=== PATIENT | male | born 1985 | race Caucasian/White ===

== ENCOUNTER 2019-04-30 17:01 | Emergency (ER) | payer OTHER ==
[~2019-04-30] VITALS: Ht 170.1 cm; Wt 90.7 kg
--- NOTE | ~2019-04-30 | EKG ---
[place], [place] ELECTROCARDIOGRAM REPORT NAME: BEATRICE TAYLOR UNIT #: [id number] ROOM: DOCTOR: EPIPHANY DRAFT REPORT BIRTHDATE: [birth year] [facility] Test Date: 2019-04-30 Test Time: 17:57:36 Pat Name: BEATRICE TAYLOR Department: Room: Gender: House Fellow: : 1985 Requested By: BLAYNE MAZARIEGOS DNP Order Number: [id number] Reading MD: Alexander Kim MD Measurements Intervals [place] Rate: 82 P: 25 [place]: 170 QRS: 10 QRSD: 97 T: 3 QT: 372 QTc: 435 Interpretive Statements Sinus rhythm Left ventricular hypertrophy Electronically Signed On 05-03-2019 7:43:59 PDT by Alexander Kim MD CM:EKGRPT:ELECTROCARDIOGRAM REPORT [id number] BLAYNE MAZARIEGOS DNP EPIPHANY DRAFT REPORT BLAYNE MAZARIEGOS DNP
[~2019-04-30 17:01] MED LIST: MOTRIN800 MG PO
[2019-04-30 18:11] LABS: BASO # 0.1 10*3/uL (0.0-0.1); BASO % 0.6 % (0.0-1.0); EOS # 0.3 10*3/uL (0.0-0.4); EOS % 3.9 % (1.0-4.0); HEMATOCRIT 44.9 % (42.0-52.0); HEMOGLOBIN 15.1 g/dl (14.0-18.0); LYMPH # 2.3 10*3/uL (1.3-4.4); LYMPH % 28.4 % (27.0-41.0); MEAN CELL VOLUME 89.8 fl (80.0-94.0); MEAN CORPUSCULAR HGB 30.2 pg (27.0-31.0); MEAN CORPUSCULAR HGB CONC 33.6 g/dl (33.0-37.0); MEAN PLATELET VOLUME 9.2 fl (9.6-12.3); MONO # 0.6 10*3/uL (0.1-1.0); MONO % 7.2 % (3.0-9.0); NEUT # 4.9 10*3/uL (2.3-7.9); NEUT % 59.5 % (47.0-73.0); PLATELET COUNT AUTOMATED 261 10*3/uL (130-400); RED CELL DISTRI WIDTH 12.5 % (0-14.5); WHITE BLOOD COUNT 8.2 10*3/uL (4.8-10.8)
[2019-04-30 18:22] LABS: ACT PARTIAL THROMBO TIME 26.5 SECONDS (20.0-32.1); INTERNATIONAL NORM RATIO 0.9 (2.0-3.5)
[2019-04-30 18:28] LABS: ALBUMIN 4.1 gm/dl (3.1-4.5); ALKALINE PHOSPHATASE 69 U/L (45-117); BUN 12 mg/dl (7-24); CHLORIDE 110 mmol/L (98-107); CREATININE 0.97 mg/dL (0.70-1.30); LIPASE 102 U/L (73-393); POTASSIUM 3.6 mmol/L (3.5-5.1); SGOT/AST 22 IU/L (3-35); SGPT/ALT 39 U/L (12-78); SODIUM 141 mmol/L (136-145); TOTAL PROTEIN 7.9 gm/dL (6.4-8.2)
[2019-04-30 18:45] LABS: TROPONIN I < 0.015 ng/ml (<0.045)
[2019-04-30] MEDS ORDERED: NORVASC5 MG PO (19:21)
[2019-04-30 20:42] LABS: BILIRUBIN NEGATIVE (NEGATIVE); BLOOD 3+ (NEGATIVE); CLARITY CLEAR (CLEAR); COLOR YELLOW (YELLOW); GLUCOSE NEGATIVE (NEGATIVE); KETONE NEGATIVE (NEGATIVE); LEUKO ESTERASE NEGATIVE (NEGATIVE); NITRITE NEGATIVE (NEGATIVE); SPECIFIC GRAVITY >= 1.030 (1.005-1.030); UROBILINOGEN 0.2 E.U./dl (0.2-1.0)
[2019-04-30 20:53] LABS: RBC 16-20 rbc/hpf (0-2)
== END 2019-04-30 19:29 | disposition home or self-care (01) ==
LOC: ED 17:01
PROVIDERS: Nurse Practitioner Family
DX: I10 Essential (primary) hypertension (principal); F17.200 Nicotine dependence, unspecified, uncomplicated

== ENCOUNTER 2020-06-17 16:45 | Emergency (ER) | payer OTHER ==
[~2020-06-17] VITALS: Ht 170.1 cm; Wt 99.8 kg
[~2020-06-17 16:45] MED LIST changes: +NORVASC5 MG PO
== END 2020-06-17 17:55 | disposition home or self-care (01) ==
LOC: ED 16:45
DX: S01.81XA Laceration without foreign body of other part of head, initial encounter (principal); Z79.899 Other long term (current) drug therapy; W19.XXXA Unspecified fall, initial encounter; Y93.89 Activity, other specified; Y92.89 Other specified places as the place of occurrence of the external cause; Y99.8 Other external cause status

== ENCOUNTER 2023-01-21 14:30 | Emergency (ER) | payer OTHER ==
[~2023-01-21] VITALS: Ht 170.1 cm; Wt 90.7 kg
[2023-01-21] MEDS ORDERED: ACYCLOVIR800 MG PO (15:23)
[2023-01-21] MEDS ORDERED: NEURONTIN300 MG PO (15:23)
== END 2023-01-21 15:10 | disposition home or self-care (01) ==
LOC: ED 14:30
DX: B02.9 Zoster without complications (principal); R53.81 Other malaise; R09.89 Other specified symptoms and signs involving the circulatory and respiratory systems

== ENCOUNTER 2023-04-28 16:42 | Emergency (ER) | payer OTHER ==
[~2023-04-28] VITALS: Ht 170.1 cm; Wt 98.4 kg
[~2023-04-28 16:42] MED LIST changes: +ACYCLOVIR800 MG PO; +NEURONTIN300 MG PO
[2023-04-28] MEDS ORDERED: MELOXICAM15 MG PO (20:56)
== END 2023-04-28 21:08 | disposition home or self-care (01) ==
LOC: ED 16:42
DX: S46.912A Strain of unspecified muscle, fascia and tendon at shoulder and upper arm level, left arm, initial encounter (principal); I10 Essential (primary) hypertension; F17.210 Nicotine dependence, cigarettes, uncomplicated; Z79.899 Other long term (current) drug therapy; X50.9XXA Other and unspecified overexertion or strenuous movements or postures, initial encounter; Y93.84 Activity, sleeping; Y92.89 Other specified places as the place of occurrence of the external cause; Y99.8 Other external cause status

== ENCOUNTER → 2023-11-04 | Outpatient (CLI) | payer OTHER ==
[~2023-11-04] MED LIST changes: +MELOXICAM15 MG PO
== END | disposition home or self-care (01) ==
LOC: RAD 14:52
PROVIDERS: ATTEND Family Medicine
DX: M19.011 Primary osteoarthritis, right shoulder (principal); M77.31 Calcaneal spur, right foot; M25.571 Pain in right ankle and joints of right foot